=== PATIENT | female | born 1995 | race Hispanic/Latino ===

== ENCOUNTER 2017-09-20 17:40 | Emergency (ER) | payer OTHER ==
[2017-09-20 18:20] VITALS: BP 131/87; PULSE 85; RESP 18; TEMP 98.2; O2SAT 99
[2017-09-20] MEDS ORDERED: Rabies Immune Globulin 150 INTLU/ML VIAL IM ONE (18:28)
--- NOTE | 2017-09-20 18:34 | ED PDOC ---
Arrival/HPI - General Chief Complaint: Bite Time Seen by Provider: 09/20/17 18:28 Historian: Patient - History of Present Illness Narrative History of Present Illness (Text): 09/20/17 18:30 22yo female with no PMhx who present to ED for cat bite to her left 5th finger. States she was bitten at 1600. Notes that the cat was not vaccinated and she came to ED for rabies vaccine. Also notes that she is up to date with her TD vaccine. Denies any other complaint. Past Medical History - Provider Review Nursing Documentation Reviewed: Yes - Cardiac Hx Cardiac Disorders: Yes Hx Heart Murmur: Yes - Psychiatric Hx Substance Use: No Family/Social History - Physician Review Nursing Documentation Reviewed: Yes Family/Social History: Unknown Family HX Smoking Status: Never Smoked Hx Alcohol Use: Yes Frequency of alcohol use: Socially Hx Substance Use: No Allergies/Home Meds Allergies/Adverse Reactions: Allergies No Known Allergies Allergy (Verified 09/20/17 18:14) Review of Systems - Physician Review All systems were reviewed & negative as marked: Yes - Review of Systems Constitutional: Normal Eyes: Normal ENT: Normal Respiratory: Normal Cardiovascular: Normal Gastrointestinal: Normal Genitourinary Female: Normal Musculoskeletal: Normal Skin: Other (CAt bite to left 5th finger) Neurological: Normal Endocrine: Normal Hemo/Lymphatic: Normal Psychiatric: Normal Physical Exam Vital Signs Reviewed: Yes Vital Signs Temp Pulse Resp BP Pulse Ox 09/20/17 18:14 98.2 F 85 18 131/87 99 Temperature: Afebrile Blood Pressure: Normal Pulse: Regular Respiratory Rate: Normal Appearance: Positive for: Well-Appearing, Non-Toxic, Comfortable Pain Distress: None Mental Status: Positive for: Alert and Oriented X 3 - Systems Exam Head: Present: Atraumatic, Normocephalic Pupils: Present: PERRL Extroacular Muscles: Present: EOMI Conjunctiva: Present: Normal Mouth: Present: Moist Mucous Membranes Neck: Present: Normal Range of Motion Respiratory/Chest: Present: Clear to Auscultation, Good Air Exchange. No: Respiratory Distress, Accessory Muscle Use Cardiovascular: Present: Regular Rate and Rhythm, Normal S1, S2. No: Murmurs Abdomen: Present: Normal Bowel Sounds. No: Tenderness, Distention, Peritoneal Signs Back: Present: Normal Inspection Upper Extremity: Present: Normal Inspection, Normal ROM, NORMAL PULSES, Neurovascularly Intact, Other (Puncture wound noted to left 5th volar finger). No: Cyanosis, Edema, Tenderness, Swelling, Erythema, Deformity Lower Extremity: Present: Normal Inspection. No: Edema Neurological: Present: GCS=15, CN II-XII Intact, Speech Normal Skin: Present: Warm, Dry, Normal Color. No: Rashes Psychiatric: Present: Alert, Oriented x 3, Normal Insight, Normal Concentration Medical Decision Making - Medication Orders Current Medication Orders: Discontinued Medications Rabies Immune Globulin (Imogam) 1,240 intlu IM .ONCE ONE Stop: 09/20/17 18:29 Rabies Vaccine Human Diploid Cell (Imovax Rabies) 2.5 units IM .ONCE ONE Stop: 09/20/17 18:29 Tetanus/Reduced Diphtheria/Acell Pertussis (Boostrix Vaccine Inj) 0.5 ml IM .ONCE ONE Stop: 09/20/17 18:37 Disposition/Present on Arrival - Present on Arrival Any Indicators Present on Arrival: No History of DVT/PE: No History of Uncontrolled Diabetes: No Urinary Catheter: No History of Decub. Ulcer: No History Surgical Site Infection Following: None - Disposition Have Diagnosis and Disposition been Completed?: Yes Diagnosis: Cat bite Disposition: HOME/ ROUTINE Disposition Time: 19:20 Patient Plan: Discharge Patient Problems: Current Active Problems Problem Status Onset Cat bite Acute Condition: STABLE Discharge Instructions (ExitCare): Animal Bites (DC) Additional Instructions: Return to ED on the , , and October 04 for remaining rabies vaccine Keep wound clean and dry Follow up with your doctor Return to ED for any new or worsening symptoms Prescriptions: Amoxicillin/Clavulanate [Augmentin 875 MG-125 MG] 1 tab PO BID #14 tab Referrals: Little1vani Wilburn, [Non-Staff] - Follow up with primary [facility] [place] [facility] [place] - Follow up with primary Forms: [employer] (Kazakh)
[2017-09-20] MEDS ORDERED: TDAP Vaccine 0.5 mL Syr IM ONE (18:36)
[2017-09-20] MEDS ORDERED: Amoxicillin-Clav 875-125 mg Tab PO STA (19:20)
== END 2017-09-20 20:00 | disposition home or self-care (01) ==
LOC: ED 17:40
DX: S61.257A Open bite of left little finger without damage to nail, initial encounter (principal); W55.01XA Bitten by cat, initial encounter; Z23 Encounter for immunization

== ENCOUNTER 2017-09-23 13:51 | Emergency (ER) | payer OTHER ==
[2017-09-23 14:18] VITALS: BP 131/79; PULSE 78; RESP 18; TEMP 98.5; O2SAT 99
[2017-09-23] MEDS ORDERED: RABIES VACCINE 2.5 Units PDR IM ONE (14:30)
--- NOTE | 2017-09-23 14:46 | ED PDOC ---
Arrival/HPI - General Chief Complaint: Rabies Vaccine Series Time Seen by Provider: 09/23/17 14:19 Historian: Patient - History of Present Illness Narrative History of Present Illness (Text): 09/23/17 15:03 22-year-old female presents today for her second rabies vaccine. 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 Patient denies numbness weakness or tingling in the extremity. Patient states she is taking the antibiotics as prescribed. She denies fevers or chills. States she is here for her second rabies vaccine. No other complaints Past Medical History - Provider Review Nursing Documentation Reviewed: Yes - Travel History Have you recently traveled outside [place] w/in the past 3 mons?: No - Infectious Disease Hx of Infectious Diseases: None - Reproductive Menopause: No - Cardiac Hx Cardiac Disorders: Yes Hx Heart Murmur: Yes - Psychiatric Hx Substance Use: No Family/Social History - Physician Review Nursing Documentation Reviewed: Yes Family/Social History: Unknown Family HX Smoking Status: Never Smoked Hx Alcohol Use: Yes Hx Substance Use: No Allergies/Home Meds Allergies/Adverse Reactions: Allergies No Known Allergies Allergy (Verified 09/20/17 18:14) Review of Systems - Review of Systems Constitutional: absent: Fatigue, Fevers Respiratory: absent: SOB, Cough Cardiovascular: absent: Chest Pain, Palpitations Gastrointestinal: absent: Abdominal Pain, Nausea, Vomiting Musculoskeletal: Arthralgias Skin: Rash (cat bite) Neurological: absent: Headache, Dizziness Physical Exam Vital Signs Reviewed: Yes Vital Signs Temp Pulse Resp BP Pulse Ox 09/23/17 14:14 98.5 F 78 18 131/79 99 Temperature: Afebrile Blood Pressure: Normal Pulse: Regular Respiratory Rate: Normal Appearance: Positive for: Well-Appearing, Non-Toxic, Comfortable Pain Distress: None Mental Status: Positive for: Alert and Oriented X 3 - Systems Exam Head: Present: Atraumatic Neck: Present: Normal Range of Motion Respiratory/Chest: Present: Clear to Auscultation Cardiovascular: Present: Regular Rate and Rhythm Upper Extremity: Present: Normal ROM, NORMAL PULSES, Capillary Refill < 2s, Other (abrasion to left 5th finger along dorsal aspect at PIP. no erythema; no edema, no ecchymosis. ). No: Tenderness, Swelling, Erythema, Neurovascularly Intact, Deformity Neurological: Present: GCS=15 Skin: Present: Warm, Dry, Normal Color Psychiatric: Present: Alert, Oriented x 3 Medical Decision Making ED Course and Treatment: 09/23/17 15:08 Patient is nontoxic well-appearing in no distress. Vital signs are stable. 2nd rabies vaccine given. Patient was advised to keep the wound clean and dry, apply bacitracin twice daily, take antibiotics as prescribed and return immediately if symptoms worsen persist or if new symptoms develop Patient verbalizes understanding of discharge instructions and need for immediate followup. all aspects of this case were discussed the attending of record. Impression: wound check, rabies vaccine, cat bite continue antibiotics as prescribed. Keep the wound clean and dry, apply bacitracin twice daily Follow up with the primary care physician within the next 2 days. Return immediately if symptoms worsen persist or if new symptoms develop: High fevers, increasing pain, increasing redness, swelling or if any other concerning symptoms develop. Return on sep 27 and october 04 for the remainder of your rabies vaccine. - Medication Orders Current Medication Orders: Discontinued Medications Rabies Vaccine Human Diploid Cell (Rabavert Vaccine Inj) 2.5 units IM .ONCE ONE Stop: 09/23/17 14:31 Disposition/Present on Arrival - Present on Arrival Any Indicators Present on Arrival: No History of DVT/PE: No History of Uncontrolled Diabetes: No Urinary Catheter: No History of Decub. Ulcer: No History Surgical Site Infection Following: None - Disposition Have Diagnosis and Disposition been Completed?: Yes Diagnosis: Need for rabies vaccination, Visit for wound check Disposition: HOME/ ROUTINE Disposition Time: 14:44 Patient Plan: Discharge Patient Problems: Current Active Problems Problem Status Onset Need for rabies vaccination Acute Visit for wound check Acute Condition: GOOD Additional Instructions: continue antibiotics as prescribed. Keep the wound clean and dry, apply bacitracin twice daily Follow up with the primary care physician within the next 2 days. Return immediately if symptoms worsen persist or if new symptoms develop: High fevers, increasing pain, increasing redness, swelling or if any other concerning symptoms develop. Return on sep 27 and october 04 for the remainder of your rabies vaccine. Referrals: Sukhdev Oviedo MD [Staff Provider] - Follow up with primary [facility] at [facility] [place] [Outside] - Follow up with primary Forms: [employer] (Kuwaiti)
== END 2017-09-23 15:18 | disposition home or self-care (01) ==
LOC: ED 13:51
DX: Z23 Encounter for immunization (principal)

== ENCOUNTER 2017-09-27 20:09 | Emergency (ER) | payer OTHER ==
[2017-09-27 20:19] VITALS: BP 126/59; PULSE 81; RESP 18; TEMP 97.4; O2SAT 100; BMI 22.3
[2017-09-27] MEDS ORDERED: RABIES VACCINE 2.5 Units PDR IM ONE (20:22)
--- NOTE | 2017-09-27 20:24 | ED PDOC ---
Arrival/HPI - General Historian: Patient <Amirah Torres - Last Filed: 09/27/17 20:25> <Chava Goodrich - Last Filed: 09/27/17 21:08> - General Chief Complaint: Rabies Vaccine Series Time Seen by Provider: 09/27/17 20:20 - History of Present Illness Narrative History of Present Illness (Text): 09/27/17 20:25 22-year-old female presents today for her 3rd rabies vaccine. 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 Patient states she is taking the antibiotics as prescribed. She denies fevers or chills.Patient denies numbness weakness or tingling in the extremity. No other complaints (Amirah Torres) Past Medical History - Provider Review Nursing Documentation Reviewed: Yes - Travel History Have you recently traveled outside [place] w/in the past 3 mons?: No - Infectious Disease Hx of Infectious Diseases: None - Tetanus Immunization Tetanus Immunization: Up to Date - Cardiac Hx Cardiac Disorders: Yes Hx Heart Murmur: Yes - Psychiatric Hx Substance Use: No <Amirah Torres - Last Filed: 09/27/17 20:25> Family/Social History - Physician Review Nursing Documentation Reviewed: Yes Family/Social History: Unknown Family HX Smoking Status: Never Smoked Hx Alcohol Use: Yes Hx Substance Use: No <Amirah Torres - Last Filed: 09/27/17 20:25> Allergies/Home Meds <Amirah Torres - Last Filed: 09/27/17 20:25> <Chava Goodrich - Last Filed: 09/27/17 21:08> Allergies/Adverse Reactions: Allergies No Known Allergies Allergy (Verified 09/27/17 20:19) Review of Systems - Review of Systems Constitutional: absent: Fatigue, Fevers Respiratory: absent: SOB, Cough Cardiovascular: absent: Chest Pain, Palpitations Gastrointestinal: absent: Abdominal Pain, Nausea, Vomiting Musculoskeletal: absent: Arthralgias Skin: absent: Pruritis, Abscess, Cellulitis Neurological: absent: Headache Psychiatric: absent: Anxiety, Depression <Amirah Torres - Last Filed: 09/27/17 20:25> Physical Exam Vital Signs Reviewed: Yes Temperature: Afebrile Blood Pressure: Normal Pulse: Regular Respiratory Rate: Normal Appearance: Positive for: Well-Appearing, Non-Toxic, Comfortable Pain Distress: None Mental Status: Positive for: Alert and Oriented X 3 - Systems Exam Head: Present: Atraumatic Respiratory/Chest: Present: Clear to Auscultation Cardiovascular: Present: Regular Rate and Rhythm Upper Extremity: Present: Normal ROM, NORMAL PULSES, Neurovascularly Intact, Capillary Refill < 2s, Other (healed superficial abrasions over DIP; no erythema ; no edema, no ecchymosis. ). No: Tenderness, Swelling, Erythema, Deformity Neurological: Present: GCS=15 Skin: Present: Warm, Dry Psychiatric: Present: Alert, Oriented x 3 <Amirah Torres - Last Filed: 09/27/17 20:25> Vital Signs Temp Pulse Resp BP Pulse Ox 09/27/17 20:20 97.4 F L 81 18 126/59 L 100 09/27/17 20:18 97.4 F L 81 18 126/59 L 100 Medical Decision Making <Amirah Torres - Last Filed: 09/27/17 20:25> <Chava Goodrich - Last Filed: 09/27/17 21:08> ED Course and Treatment: 09/27/17 20:22 Patient is nontoxic well-appearing in no distress. Vital signs are stable. 3rd rabies vaccine given. wound healing well without signs of infection Patient was advised to keep the wound clean and dry, apply bacitracin twice daily, take antibiotics as prescribed and return immediately if symptoms worsen persist or if new symptoms develop Patient verbalizes understanding of discharge instructions and need for immediate followup. all aspects of this case were discussed the attending of record. Impression: wound check, rabies vaccine, cat bite continue antibiotics as prescribed. Keep the wound clean and dry, apply bacitracin twice daily Follow up with the primary care physician within the next 2 days. Return immediately if symptoms worsen persist or if new symptoms develop: High fevers, increasing pain, increasing redness, swelling or if any other concerning symptoms develop. Return on october 04 for the remainder of your rabies vaccine. (Amirah Torres) - Medication Orders Current Medication Orders: Discontinued Medications Rabies Vaccine Human Diploid Cell (Rabavert Vaccine Inj) 2.5 units IM .ONCE ONE Stop: 09/27/17 20:23 - PA / [employer] / Resident Statement / has reviewed & agrees with the documentation as recorded. / has examined the patient and agrees with the treatment plan. <Chava Goodrich - Last Filed: 09/27/17 21:08> Disposition/Present on Arrival - Present on Arrival Any Indicators Present on Arrival: No History of DVT/PE: No History of Uncontrolled Diabetes: No Urinary Catheter: No History of Decub. Ulcer: No History Surgical Site Infection Following: None - Disposition Have Diagnosis and Disposition been Completed?: Yes Disposition Time: 20:24 Patient Plan: Discharge <Amirah Torres - Last Filed: 09/27/17 20:25> <JoleenChava - Last Filed: 09/27/17 21:08> - Disposition Diagnosis: Cat bite, Need for rabies vaccination Disposition: HOME/ ROUTINE Patient Problems: Current Active Problems Problem Status Onset Cat bite Acute Need for rabies vaccination Acute Condition: GOOD Additional Instructions: continue antibiotics as prescribed. Keep the wound clean and dry, apply bacitracin twice daily Follow up with the primary care physician within the next 2 days. Return immediately if symptoms worsen persist or if new symptoms develop: High fevers, increasing pain, increasing redness, swelling or if any other concerning symptoms develop. Return on october 04 for the remainder of your rabies vaccine. Referrals: Nathan Steward DO [Staff Provider] - Follow up with primary Forms: [employer] (Lebanese)
== END 2017-09-27 21:24 | disposition home or self-care (01) ==
LOC: ED 20:09
DX: Z23 Encounter for immunization (principal); S61.257D Open bite of left little finger without damage to nail, subsequent encounter; W55.01XD Bitten by cat, subsequent encounter

== ENCOUNTER 2017-10-04 20:05 | Emergency (ER) | payer OTHER ==
[2017-10-04 20:06] VITALS: BMI 22.3
--- NOTE | 2017-10-04 20:11 | ED PDOC ---
Arrival/HPI - General Historian: Patient <Chanelle Martinez - Last Filed: 10/04/17 20:22> <Mitchell Lind - Last Filed: 10/04/17 20:45> - General Time Seen by Provider: 10/04/17 20:08 - History of Present Illness Narrative History of Present Illness (Text): 10/04/17 20:09 22yo female present to ED for 4th rabies vaccine. Patient states she was bitten by a Cat on 09/20/17. She denies any other complaint. (Chanelle Martinez A) Past Medical History - Provider Review Nursing Documentation Reviewed: Yes - Infectious Disease Hx of Infectious Diseases: None - Tetanus Immunization Tetanus Immunization: Up to Date - Cardiac Hx Cardiac Disorders: Yes Hx Heart Murmur: Yes - Psychiatric Hx Substance Use: No <Chanelle Martinez - Last Filed: 10/04/17 20:22> Family/Social History - Physician Review Nursing Documentation Reviewed: Yes Family/Social History: Unknown Family HX Smoking Status: Never Smoked Hx Alcohol Use: Yes Hx Substance Use: No <Chanelle Martinez - Last Filed: 10/04/17 20:22> Allergies/Home Meds <Chanelle Martinez A - Last Filed: 10/04/17 20:22> <Mitchell Lind - Last Filed: 10/04/17 20:45> Allergies/Adverse Reactions: Allergies No Known Allergies Allergy (Verified 10/04/17 20:11) Home Medications: Home Meds Medication Instructions Recorded Confirmed No Known Home Med 10/04/17 10/04/17 Review of Systems - Physician Review All systems were reviewed & negative as marked: Yes - Review of Systems Constitutional: Normal, Other (Rabies vaccine) Eyes: Normal ENT: Normal Respiratory: Normal Cardiovascular: Normal Gastrointestinal: Normal Genitourinary Female: Normal Musculoskeletal: Normal Skin: Normal Neurological: Normal Endocrine: Normal Hemo/Lymphatic: Normal Psychiatric: Normal <Chanelle Martinez A - Last Filed: 10/04/17 20:22> Physical Exam Vital Signs Reviewed: Yes Temperature: Afebrile Blood Pressure: Normal Pulse: Regular Respiratory Rate: Normal Appearance: Positive for: Well-Appearing, Non-Toxic, Comfortable Pain Distress: None Mental Status: Positive for: Alert and Oriented X 3 - Systems Exam Head: Present: Atraumatic, Normocephalic Pupils: Present: PERRL Extroacular Muscles: Present: EOMI Conjunctiva: Present: Normal Mouth: Present: Moist Mucous Membranes Neck: Present: Normal Range of Motion Respiratory/Chest: Present: Clear to Auscultation, Good Air Exchange. No: Respiratory Distress, Accessory Muscle Use Cardiovascular: Present: Regular Rate and Rhythm, Normal S1, S2. No: Murmurs Abdomen: Present: Normal Bowel Sounds. No: Tenderness, Distention, Peritoneal Signs Back: Present: Normal Inspection Upper Extremity: Present: Normal Inspection. No: Cyanosis, Edema Lower Extremity: Present: Normal Inspection. No: Edema Neurological: Present: GCS=15, CN II-XII Intact, Speech Normal Skin: Present: Warm, Dry, Normal Color. No: Rashes Psychiatric: Present: Alert, Oriented x 3, Normal Insight, Normal Concentration <Chanelle Martinez - Last Filed: 10/04/17 20:22> Vital Signs Temp Pulse Resp BP Pulse Ox 10/04/17 20:12 98.2 F 87 16 119/79 99 - Medication Orders Current Medication Orders: Discontinued Medications Rabies Vaccine Human Diploid Cell (Imovax Rabies) 2.5 units IM .ONCE ONE Stop: 10/04/17 20:17 Last Admin: 10/04/17 20:39 Dose: 2.5 units Immunization Registry Document 10/04/17 20:39 OCS (Rec: 10/04/17 20:39 OCS [id number]) Immunization Registry Consent Date 09/20/17 - PA / [employer] / Resident Statement MD/DO has reviewed & agrees with the documentation as recorded. <Mitchell Lind - Last Filed: 10/04/17 20:45> Disposition/Present on Arrival - Present on Arrival Any Indicators Present on Arrival: No History of DVT/PE: No History of Uncontrolled Diabetes: No Urinary Catheter: No History Surgical Site Infection Following: None - Disposition Have Diagnosis and Disposition been Completed?: Yes Disposition Time: 20:15 Patient Plan: Discharge <Chanelle Martinez - Last Filed: 10/04/17 20:22> <Mitchell Lind - Last Filed: 10/04/17 20:45> - Disposition Diagnosis: Animal bite Disposition: HOME/ ROUTINE Condition: STABLE Discharge Instructions (ExitCare): Animal Bites (DC) Additional Instructions: Follow up with your doctor Return to ED for any new or worsening symptoms Referrals: [facility] at [facility] [place] [Outside] - Follow up with primary
[2017-10-04 20:16] VITALS: BP 119/79; PULSE 87; RESP 16; TEMP 98.2; O2SAT 99
== END 2017-10-04 20:45 | disposition home or self-care (01) ==
LOC: ED 20:05
DX: Z23 Encounter for immunization (principal); W55.01XA Bitten by cat, initial encounter